=== PATIENT | female | born 1970 | race Caucasian/White ===

== ENCOUNTER 2017-07-06 19:23 | Emergency (ER) | payer MEDICAID ==
[~2017-07-06] VITALS: Ht 167.6 cm; Wt 94.3 kg
[2017-07-06 20:18] VITALS: BP 111/66; Ht 167.6 cm; Wt 94.3 kg
== END 2017-07-06 22:10 | disposition home or self-care (01) ==
LOC: ED 19:23
DX: J20.9 Acute bronchitis, unspecified (principal); J02.9 Acute pharyngitis, unspecified

== ENCOUNTER 2018-01-08 20:05 | Emergency (ER) | payer MEDICAID ==
[~2018-01-08] VITALS: Ht 170.2 cm; Wt 90.7 kg
[2018-01-08 20:20] VITALS: Ht 170.2 cm; Wt 90.7 kg
[2018-01-08 22:23] LABS: BASOPHIL % 0.4 % (0-2); PLATELET COUNT 239 x10^3mcL (130-400); RED CELL DISTRIBUTION WIDTH 13.4 % (11.5-14.5)
[2018-01-08 22:29] LABS: CALCIUM 8.4 mg/dL (8.5-10.1); CARBON DIOXIDE 25.8 mmol/L (21-32); CHLORIDE SERUM 107 mmol/L (98-107); CREATININE SERUM 0.8 mg/dL (0.6-1.0); GFR1 > 60 mL/min; GLUCOSE SERUM 119 mg/dL (74-106); POTASSIUM SERUM 3.7 mmol/L (3.5-5.1); SODIUM SERUM 142 mmol/L (136-145)
[2018-01-08 22:42] LABS: ALBUMIN 3.7 g/dL (3.4-5.0); ALKALINE PHOSPHATASE 72 U/L (46-116); ALT/SGPT 21 U/L (14-59); AST/SGOT 19 U/L (15-37); BILIRUBIN TOTAL 0.4 mg/dL (0.20-1.00); FREE T4 0.91 ng/dL (0.76-1.46); TOTAL PROTEIN, SERUM 8.1 g/dL (6.4-8.2)
[2018-01-08 23:55] LABS: UA SPECIFIC GRAVITY >=1.030 (1.005-1.035); microscopic required? YES; urine erythrocyte 3+ (NEGATIVE)
[2018-01-09 00:07] LABS: AMPHETAMINE QUAL UR NONE DETECTED (See below)
[2018-01-09 00:19] VITALS: BP 130/77
== END 2018-01-09 00:19 | disposition home or self-care (01) ==
LOC: ED 20:05
PROVIDERS: Emergency Medicine
DX: R42 Dizziness and giddiness (principal); R11.2 Nausea with vomiting, unspecified; R51 Headache
CPT/HCPCS: 84439; G0480; J1100; J1885; J2405; J2765; J8597

== ENCOUNTER 2019-08-01 09:00 | Emergency (ER) | payer MEDICAID ==
[~2019-08-01] VITALS: Ht 167.6 cm; Wt 95.3 kg
[2019-08-01 09:08] VITALS: Ht 167.6 cm; Wt 95.3 kg
[2019-08-01 11:00] VITALS: BP 103/43
== END 2019-08-01 11:00 | disposition home or self-care (01) ==
LOC: ED 09:00
DX: R51 Headache (principal); R11.0 Nausea
CPT/HCPCS: J1200; J1885; J2765